=== PATIENT | male | born 1960 | race Asian ===

== ENCOUNTER 2019-09-16 05:13 | Day surgery (SDC) ==
--- NOTE | 2019-09-09 14:44 | EKG Report ---
Test Performed on : 09/09/2019 2:36:52 PM Test Reason : PAT Blood Pressure : / mmHG Vent. Rate : 070 BPM Atrial Rate : 070 BPM P-R Int : 116 ms QRS Dur : 082 ms QT Int : 390 ms P-R-T Axes : 018 048 214 degrees QTc Int : 421 ms Normal sinus rhythm. Left ventricular hypertrophy with repolarization abnormality Diffuse Nonspecific ST and T wave abnormality Abnormal ECG No previous ECGs available Confirmed by Mike Humphreys MD ([id number]) on 09/11/2019 6:07:04 PM
[2019-09-09 15:08] LABS: HEMATOCRIT 37.5 % (42.0-52.0); MCH 23.2 PG (27-31); MCHC 29.3 g/dL (33-37); MCV 79.1 FL (81-99); MPV 11.5 FL (7.4-10.4); RBC 4.74 XMIL (4.7-6.1); RDW 15.4 % (11.5-14.5); WBC 9.22 X1000 (4.8-10.8)
[2019-09-09 15:25] LABS: AGAP 11; BUN 16 mg/dL (8-22); CALCIUM 9.8 mg/dL (8.8-10.2); CHLORIDE 102 mmol/L (98-107); COSMO 282; CREATININE 1.2 mg/dL (0.7-1.2); ESTIMATED GFR > 60; GLUCOSE 88 mg/dL (70-104); SODIUM 141 mmol/L (136-145); TCO2 28 mmol/L (25-35)
[2019-09-16] MEDS ORDERED: KEFZOL 2 GM/D5W 2 GM/50 ML IVPB ONE (05:45)
[2019-09-16] MEDS ORDERED: LR 1,000 ML ONE ×2 (05:45→06:44)
[2019-09-16] MEDS ORDERED: VERSED ONE (06:25)
[2019-09-16] MEDS ORDERED: DIPRIVAN 1% ONE (06:26)
[2019-09-16] MEDS ORDERED: XYLOCAINE-MPF 2% ONE (06:27)
[2019-09-16] MEDS ORDERED: SENSORCAINE 0.5%-EPI 1:200,000 ONE (06:44)
[2019-09-16] MEDS ORDERED: B & O 16A SUPP ONE (06:44)
[2019-09-16 07:41] LABS: URINE SOURCE CATH
[2019-09-16 07:45] LABS: BILIRUBIN URINE NEGATIVE (NEGATIVE); BLOOD URINE SMALL (NEGATIVE); COLOR YELLOW; GLUCOSE URINE NEGATIVE (NEGATIVE); KETONE URINE 20 mg/dL (NEGATIVE); LEUKOCYTES URINE NEGATIVE (NEGATIVE); NITRITE URINE NEGATIVE (NEGATIVE); PH URINE 6.5; PROTEIN URINE TRACE mg/dL (NEGATIVE); SP GRAVITY URINE 1.019; TURBIDITY URINE CLEAR (CLEAR); UROBILINOGEN URINE NORMAL (NORMAL)
[2019-09-16 07:47] LABS: UR EPITHELIAL CELLS <10 /HPF (<10); URINE BACTERIA NEGATIVE /HPF; URINE RBC <10 /HPF (<10); URINE WBC <10 /HPF (<10)
[2019-09-16] MEDS ORDERED: ZEMURON ONE ×2 (08:00)
[2019-09-16] MEDS ORDERED: ZOFRAN ONE (09:53)
[2019-09-16] MEDS ORDERED: OFIRMEV 1000 MG/ISOTONIC SOLN 1,000 MG/100 ML BOTTLE ONE (09:53)
[2019-09-16] MEDS ORDERED: DECADRON ONE (09:53)
[2019-09-16] MEDS ORDERED: ROBINUL ONE (09:56)
[2019-09-16] MEDS ORDERED: NEOSTIGMINE ONE (09:56)
[2019-09-16] MEDS ORDERED: BRIDION ONE (10:33)
[2019-09-16] MEDS: DILAUDID ONE ×4 (10:39→11:13)
[2019-09-16] MEDS ORDERED: PHENERGAN ONE (10:50)
[2019-09-16] MEDS ORDERED: NS 1,000 ML ONE (11:20)
--- NOTE | 2019-09-16 11:33 | OPERATIVE NOTE ---
PROCEDURE DATE: 09/16/2019 SURGEON: Dr. Adelfo Maher. PREOPERATIVE DIAGNOSIS: Prostate cancer. POSTOPERATIVE DIAGNOSIS: Prostate cancer PROCEDURE PERFORMED: Laparoscopic robot-assisted radical retropubic prostatectomy. Modified bilateral pelvic lymph node dissection and urethral suspension. ANESTHESIA: General endotracheal. FINDINGS: Normal-appearing prostate with attached seminal vesicles and vas deferens and normal- appearing lymph node packages on the left and the right side. INDICATION FOR PROCEDURE: This 59-year-old male had a history of elevated PSA to greater than 10. Prostate ultrasound and biopsies revealed adenocarcinoma, Elora grade 3 + 3 from all cores on the left side and 1 core at the right apex where there was a very small area of Shamika 4. The various treatments for prostate cancer was discussed with the patient and family, and he decided on radical prostatectomy. DESCRIPTION OF PROCEDURE IN DETAIL: After informed consent was obtained the from patient, him receiving IV antibiotics, he was taken to the main OR and placed in the supine position. General anesthesia via laryngeal mask was achieved. He was then prepped and draped in the usual sterile fashion for abdominal, penile and perineal surgery. An 18-Austrian Delcid catheter was passed through the patient's urethra, prostate, and in the bladder without problems. Total of 10 mL sterile water was placed in Delcid's balloon. Delcid was placed to gravity drain. A longitudinal skin incision was made just above the umbilicus for a distance of about 3 cm. A Veress needle was used to achieved pneumoperitoneum with CO2 to 15 cm of water pressure. The Visiport with a 12 mm port was used to enter the abdomen with the port. The camera was placed. The robot trocars were placed in their standard position with the assistant corporate secretary arm placed just above the right anterior superior iliac spine. The #1 arm was placed one handbreadth to the right of the umbilicus. The #2 arm was placed approximately 1 and a half handbreadths to the left of the umbilicus. The assistant corporate secretary port using a 12 mm port was placed in the left epigastric area. After the robot ports were placed, the patient was placed in steep Trendelenburg and the table lowered all the way. The robot was docked. The procedure was started by retracting the sigmoid colon cephalad with the 4th arm. An incision was made in the peritoneum as it reflected off the rectum about 2 cm above this reflection. This was taken back into the space between the bladder and rectum where the seminal vesicles and vas deferens were visualized. The vas deferens was bluntly and sharply dissected free. It was incised as well as the artery to the vas. The seminal vesicles were then bluntly and sharply dissected free. The vascular pedicle to the seminal vesicle was clipped. Both sides were accomplished similarly. Denonvilliers fascia was entered at the base of the prostate just below the junction of the ampulla vas deferens and prostate. The Denonvilliers fascia was incised a short distance laterally each side of the midline. Attention was then turned to the anterior abdominal wall where an incision was made in the peritoneum just medial to the internal inguinal ring. This was taken down to the vas deferens and up onto the anterior abdominal wall. Both sides were accomplished similarly. The medial and median umbilical ligaments were incised with the electrocautery. The bladder was bluntly and sharply dissected off the anterior abdominal wall. All fibrofatty tissue was removed from the anterior and lateral sides of the prostate. The endopelvic fascia was incised lateral to the prostate. The incision was taken back to the base of the prostate and up to the puboprostatic ligaments. The puboprostatic ligaments were taken down sharply. The levator ani muscles was pushed off the sides of the prostate. The dorsal vein complex was ligated with a 2-0 V-LOC suture. The suture was placed beneath the dorsal vein complex, and then through the tail of the suture. It was then passed back under the dorsal vein complex, through the periosteum of the pubis, back under the dorsal vein complex, and then back through the periosteum of the pubis. This ligates the dorsal vein complex and also acts as a urethral suspension. Attention was then turned to the bladder neck area where an incision was made using electrocautery, and the bladder was sharply dissected off the base of the prostate. When a cystotomy was made, the Delcid catheter was pulled up and acted as a traction device, suspending the prostate. The bladder was then completely dissected off the base of the prostate down to the previously dissected space of the seminal vesicles and ampulla vas deferens. This was entered. The ampulla vas deferens and seminal vesicles were brought out through this area. The prostate was retracted using the 4th arm, exposing the left side. The puboprostatic fascia was incised on the lateral side of the prostate and sharply dissected off of the side. Both sides were accomplished similarly. The prostatic pedicles were taken down with clips. Both sides were accomplished similarly. The prostate was dissected free of the rectum all the way to the apex. The dorsal vein complex as it spread over the apex of the prostate was incised using the electrocautery. The anterior urethra was incised. Delcid catheter was pulled back and the posterior urethra was incised. The remaining fibers of the posterior rhabdosphincter were incised, and the prostate was completely freed and moved to the side. A modified pelvic lymph node dissection was performed by removing the tissue off of the medial side of the external iliac vein. The most distal edge of the dissection was the node of Hutchinson. The dissection was then taken down the inside of the pubic bone to the obturator nerve, and then completely exposing the obturator nerve and dissected cephalad to the bifurcation of the external and internal iliac veins. Lymphostasis and hemostasis was achieved with clips and cautery. The left obturator node package was brought out of the abdomen through the 12 mm assistant corporate secretary port. The right side was accomplished similarly and was brought out with the specimen in the Endo Catch retrieval bag. The bladder was anastomosed to the urethra by first anastomosing the vesicovisceral fascia to the posterior rhabdosphincter with a running suture of 3-0 V-LOC. The ends of this suture, which is double armed, was left free. The bladder was anastomosed to the urethra with a running suture of 3-0 V-LOC. These needles were removed and passed out of the abdomen. The needles of the suture that was used to anastomose the vesicovisceral fascia to the posterior rhabdosphincter was then passed through the periosteum of the pubis, first on the left, than on the right. This also acts as a urethral suspension mechanism. The estimated blood loss was less than 50 mL. The Endo Catch retrieval bag string was brought out through the camera port trocar. The robot trocars were removed under direct vision and no bleeding was seen. The robot was then undocked and the table was brought up to the supine position. The 12 mm port was extended approximately 1 more centimeter. The Bovie electrocautery was used to incise subcutaneous tissue and the abdominal rectus fascia. The Endo Catch retrieval bag with the specimens inside were then removed. The specimens were sent to Pathology. The abdominal rectus fascia was reapproximated with interrupted sutures of #1 Maxon. The skin was reapproximated with clips. All port site skin incisions were also reapproximated with clips. The wounds were dressed with island dressings. He tolerated the procedure well. Again, estimated blood loss 50 mL. He was taken to the recovery room, extubated in good condition. cc: Adelfo Maher MD
[2019-09-16] MEDS ORDERED: MORPHINE IV PRN (11:41)
[2019-09-16] MEDS ORDERED: DITROPAN PO PRN (11:45)
[2019-09-16] MEDS ORDERED: SODIUM CHLORIDE 0.9% INJ PRN (11:45)
[2019-09-16] MEDS ORDERED: PHENERGAN IV PRN (11:45)
[2019-09-16] MEDS ORDERED: OXY IR PO PRN ×2 (11:45)
[2019-09-16] MEDS: NS 1,000 ML IV SCH ×2 (12:07→22:05)
[2019-09-16] MEDS: KEFZOL 2 GM/D5W 2 GM/50 ML IVPB IV SCH ×2 (15:04→23:15)
[2019-09-16] MEDS ORDERED: OFIRMEV 1000 MG/ISOTONIC SOLN 1,000 MG/100 ML BOTTLE IV PRN (16:00)
[2019-09-16] MEDS: HUMULIN R SUBQ SCH ×2 (16:05→22:06)
[2019-09-16] MEDS: LABETALOL IV PRN ×2 (18:35→23:44)
[2019-09-16] MEDS ORDERED: PEPCID PO SCH (21:00)
[2019-09-16] MEDS ORDERED: COLACE PO SCH (21:00)
[2019-09-16] MEDS ORDERED: PERIDEX MT SCH (21:00)
[2019-09-17] MEDS: LABETALOL IV PRN (03:09)
[2019-09-17] MEDS: HUMULIN R SUBQ SCH (06:27)
[2019-09-17] MEDS: KEFZOL 2 GM/D5W 2 GM/50 ML IVPB IV SCH (06:32)
[2019-09-17 06:55] LABS: HEMATOCRIT 33.2 % (42.0-52.0); HEMOGLOBIN 9.8 g/dL (14.0-18.0); MCH 23.2 PG (27-31); MCHC 29.5 g/dL (33-37); MCV 78.7 FL (81-99); MPV 12.4 FL (7.4-10.4); RBC 4.22 XMIL (4.7-6.1); RDW 15.5 % (11.5-14.5); WBC 9.63 X1000 (4.8-10.8)
[2019-09-17] MEDS ORDERED: SYNTHROID PO SCH (07:00)
[2019-09-17] MEDS ORDERED: PROTONIX PO SCH (07:00)
[2019-09-17 07:31] LABS: AGAP 12; BUN 12 mg/dL (8-22); CALCIUM 8.5 mg/dL (8.8-10.2); CHLORIDE 105 mmol/L (98-107); COSMO 288; ESTIMATED GFR > 60; GLUCOSE 121 mg/dL (70-104); POTASSIUM 4.1 mmol/L (3.5-5.1); SODIUM 144 mmol/L (136-145); TCO2 27 mmol/L (25-35)
[2019-09-17 07:47] VITALS: BP 145/83
[2019-09-17] MEDS ORDERED: AMARYL PO SCH (09:00)
[2019-09-17] MEDS ORDERED: GLUCOPHAGE PO SCH (09:00)
[2019-09-17] MEDS ORDERED: PRINZIDE 20/12.5MG PO SCH (09:00)
[2019-09-17] MEDS ORDERED: VOLTAREN PO SCH (09:00)
[2019-09-17] MEDS ORDERED: LOPRESSOR PO SCH (09:00)
[2019-09-17] MEDS ORDERED: ZOCOR PO SCH (21:00)
== END 2019-09-17 09:24 | disposition home or self-care (01) ==
LOC: OR 05:13 → 4N 05:13 → OR 09-17 09:24
PROVIDERS: ATTEND Urology